=== PATIENT | male | born 1960 | race Caucasian/White ===

== ENCOUNTER 2016-04-06 11:12 | Emergency (ER) | payer OTHER ==
[~2016-04-06] VITALS: Ht 182.9 cm; Wt 72.8 kg
[2016-04-06 11:23] VITALS: BP 139/89; TEMP 36.6; Ht 182.9 cm; Wt 72.8 kg
[2016-04-06] MEDS ORDERED: OXYC1TAB3 PO ×2 (11:54→12:11)
[2016-04-06] MEDS ORDERED: CLB/200 PO (11:54)
[2016-04-06 12:31] VITALS: PULSE 86; O2SAT 97
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
[2016-05-13] MEDS ORDERED: MELATAB2 PO (15:03)
[2016-05-13] MEDS ORDERED: TAMS0.4C38 PO (15:03)
== END 2016-04-06 12:31 | disposition home or self-care (01) ==
LOC: C.EDB 11:17 → C.EDC 12:31
DX: Z48.02 Encounter for removal of sutures (principal); M25.551 Pain in right hip; Z98.890 Other specified postprocedural states; Z87.891 Personal history of nicotine dependence

== ENCOUNTER 2016-04-09 13:10 | Emergency (ER) | payer OTHER ==
[~2016-04-09] VITALS: Ht 188 cm; Wt 75.8 kg
[~2016-04-09 13:10] MED LIST: CLB/200 PO; OXYC1TAB3 PO
[2016-04-09 13:28] VITALS: TEMP 36.8; Ht 188 cm; Wt 75.8 kg
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
[2016-04-09 14:21] LABS: BASO % 0.3 %; BASO ABS # 0.02 K/uL (0-0.2); COMPLETE YES; EOS % 2.9 %; HEMATOCRIT 35.6 % (42-52); IG% 0.2 %; LYMPH % 38.4 %; LYMPH ABS # 2.49 K/uL (1.2-3.4); MEAN CELL VOLUME 87.5 fL (80-100); MEAN CORPUSCULAR HEMOGLOBIN 29.2 pg (25-34); MEAN CORPUSCULAR HGB CONC 33.4 g/dl (32-36); MEAN PLATELET VOLUME 9.9 fL (7.4-10.4); MONO % 11.4 %; NEUT % 46.8 %; PLATELET COUNT 164 K/uL (130-400); RED BLOOD COUNT 4.07 M/uL (4.7-6.1); WHITE BLOOD COUNT 6.48 K/uL (4.8-10.8)
[2016-04-09 14:40] LABS: BUN/CREATININE RATIO 17.1 (10-20); CREATININE 1.2 mg/dl (0.60-1.40); POTASSIUM 4.2 mmol/L (3.5-5.1)
[2016-04-09 14:42] LABS: ACETAMINOPHEN < 2 ug/ml (10-30)
[2016-04-09 14:56] LABS: ALB/GLOB RATIO 1.1 (0.9-2); THYROID STIMULATING HORMONE 1.17 uIu/ml (0.300-4.500)
[2016-04-09] MEDS ORDERED: ACETAMINOPHEN 500 MG TAB PO STA (16:00)
[2016-04-09 17:25] VITALS: BP 126/79; PULSE 112; O2SAT 98
[2016-05-13] MEDS ORDERED: TAMS0.4C38 PO (15:03)
[2016-05-13] MEDS ORDERED: MELATAB2 PO (15:03)
== END 2016-04-09 17:45 | disposition home or self-care (01) ==
LOC: C.EDB 13:11 → C.EDA 17:45
DX: F10.129 Alcohol abuse with intoxication, unspecified (principal); G89.29 Other chronic pain; Z98.890 Other specified postprocedural states; Z87.891 Personal history of nicotine dependence; Z79.899 Other long term (current) drug therapy

== ENCOUNTER → 2016-04-20 | Outpatient (CLI) | payer OTHER ==
[~2016-04-20] MED LIST changes: +MELATAB2 PO; +TAMS0.4C38 PO
[2016-04-20 10:15] LABS: HEMATOCRIT 38.2 % (42-52); MEAN CELL VOLUME 86.6 fL (80-100); MEAN CORPUSCULAR HEMOGLOBIN 28.6 pg (25-34); MEAN PLATELET VOLUME 10.3 fL (7.4-10.4); PLATELET COUNT 204 K/uL (130-400); RED BLOOD COUNT 4.41 M/uL (4.7-6.1); WHITE BLOOD COUNT 6.63 K/uL (4.8-10.8)
[2016-04-20 10:41] LABS: ALT/SGPT 31 U/L (12-78); BLOOD UREA NITROGEN 16 mg/dl (7-18); CALCIUM 8.8 mg/dl (8.5-10.1); CARBON DIOXIDE 28 mmol/L (21-32); CHLORIDE 101 mmol/L (98-107); CREATININE 0.99 mg/dl (0.60-1.40); GLUCOSE 94 mg/dl (70-99); POTASSIUM 4.1 mmol/L (3.5-5.1); SODIUM 138 mmol/L (136-145)
[2016-04-20 10:44] LABS: ALKALINE PHOSPHATASE 94 U/L (45-117); AST/SGOT 27 U/L (15-37)
[2016-04-22 14:56] LABS: URCREATININE 71.7 MG/DL (>/= 20)
== END | disposition home or self-care (01) ==
LOC: C.LAB1850 09:05
PROVIDERS: ATTEND Internal Medicine
DX: G89.29 Other chronic pain (principal)